=== PATIENT | female | born 1975 | race Caucasian/White ===

== ENCOUNTER 2017-07-13 15:51 | Emergency (ER) | payer OTHER ==
[~2017-07-13 15:51] MED LIST: BACT800T5 PO; CLIN1CAP5 PO; CLON1 PO; IBUP600 PO; METH-703 PO; OXYC1SOL5 PO; TRAM50 PO; subutex PO
[2017-07-13 16:10] VITALS: BP 125/80; PULSE 92; RESP 18; TEMP 98.3; O2SAT 98
[2017-07-13] MEDS ORDERED: CLON1 PO (16:39)
[2017-07-13] MEDS ORDERED: NEUR300C PO (16:39)
--- NOTE | 2017-07-13 17:24 | PD ---
HPI Chief Complaint: Psychiatric Symptoms Time Seen by Provider: 16:16 Travel History International Travel<30 days: No Contact w/Intl Traveler<30days: No Traveled to known affect area: No History of Present Illness HPI 41-year-old female presents to the emergency room under Shelton act. According to the Shelton act report the patient is "not taking prescribed medication. Hallucinating, saying people are following her." On my examination the patient reports having paranoid thoughts for the past 3 months. Says she thinks people want her check in money and that they have been following her around her house. Says she thinks her friends are trying to get her locked up so they can steal her debit card. She admits to IV methamphetamines and says she last injected a couple days ago. Denies auditory or visual hallucinations. Denies suicidal or homicidal ideations. Reports history of suicidal attempt in 2008, otherwise she states she has not been suicidal or had thoughts of suicide since then. Symptoms are moderate to severe in severity. Unknown duration. Unknown onset. No known aggravating or relieving factors. Denies other illicit drug use. Denies alcohol use. Reports tobacco use. Denies chest pain, shortness of breath, abdominal pain, vomiting, fevers, change in urine or stool. Primary care provider is Dr. Morris. Allergies Geodon. History of stress, nerve pain. Takes Klonopin, gabapentin, and Subutex. No other modifying factors or associated signs and symptoms. PFSH Past Medical History Anxiety: Yes Diminished Hearing: No Neurologic: Yes (HISTORY OF HEADACHES AND FACIAL PAIN S/P FACIAL SURGERY. 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 Reported Meds & Prescriptions Reported Meds & Active Scripts Active Keflex (Cephalexin) 500 Mg Cap 500 Mg PO Q12H 7 Days [subutex] 8 Mg PO BID Reported Buprenorphine (Buprenorphine HCl) 8 Mg Subl 8 Mg SL BID Klonopin (Clonazepam) 1 Mg Tab 1 Mg PO BID Neurontin (Gabapentin) 300 Mg Cap 300 Mg PO BID Review of Systems Except as stated in HPI: all other systems reviewed are Neg Physical Exam Narrative GENERAL: Well-nourished, well-developed female patient, in no acute distress SKIN: Warm and dry. HEAD: Atraumatic. Normocephalic. EYES: Pupils equal and round. ENT: Mucosa pink and moist. NECK: Supple. Trachea midline. CARDIOVASCULAR: Regular rate and rhythm. No murmur appreciated. RESPIRATORY: No accessory muscle use. Clear to auscultation. Breath sounds equal bilaterally. GASTROINTESTINAL: Abdomen soft, non-tender, nondistended. Hepatic and splenic margins not palpable. Bowel sounds are active 4 quadrants. MUSCULOSKELETAL: No obvious deformities. No clubbing. No cyanosis. No edema. BACK: No CVA tenderness. NEUROLOGICAL: Awake and alert. Oriented 3. No obvious cranial nerve deficits. Motor grossly within normal limits. Normal speech. Moves all extremities. 5/5 strength to all extremities. PSYCHIATRIC: No delusional thought processes. No hallucinations. Data Data Last Documented VS Vital Signs Date Time Temp Pulse Resp B/P (MAP) Pulse Ox O2 Delivery O2 Flow Rate FiO2 07/14/17 10:11 68 16 118/62 (80) 99 07/14/17 03:16 Room Air 07/13/17 16:10 98.3 Orders Orders Complete Blood Count With Diff (07/13/17 17:18) Comprehensive Metabolic Panel (07/13/17 17:18) Thyroid Stimulating Hormone (07/13/17 17:18) Psych Screen (07/13/17 17:18) Drug Screen, Random Urine (07/13/17 17:18) Alcohol (Ethanol) (07/13/17 17:18) Salicylates (Aspirin) (07/13/17 17:18) Tylenol (Acetaminophen) (07/13/17 17:18) Urinalysis - C+S If Indicated (07/13/17 17:18) Ed Urine Pregnancytest Poc (07/13/17 17:18) Urine Culture (07/13/17 17:20) Cephalexin (Keflex) (07/13/17 21:00) Diet Regular Basic (07/14/17 Breakfast) Ed Discharge Order (07/14/17 10:32) Labs Laboratory Tests Test 07/13/17 17:15 07/13/17 17:20 07/13/17 19:45 White Blood Count 6.2 TH/MM3 Red Blood Count 4.95 MIL/MM3 Hemoglobin 15.0 GM/DL Hematocrit 42.5 % Mean Corpuscular Volume 85.9 FL Mean Corpuscular Hemoglobin 30.2 PG Mean Corpuscular Hemoglobin Concent 35.2 % Red Cell Distribution Width 13.5 % Platelet Count 278 TH/MM3 Mean Platelet Volume 8.1 FL Neutrophils (%) (Auto) 61.0 % Lymphocytes (%) (Auto) 24.9 % Monocytes (%) (Auto) 11.6 % Eosinophils (%) (Auto) 1.9 % Basophils (%) (Auto) 0.6 % Neutrophils # (Auto) 3.8 TH/MM3 Lymphocytes # (Auto) 1.5 TH/MM3 Monocytes # (Auto) 0.7 TH/MM3 Eosinophils # (Auto) 0.1 TH/MM3 Basophils # (Auto) 0.0 TH/MM3 CBC Comment DIFF FINAL Differential Comment Blood Urea Nitrogen 16 MG/DL Creatinine 0.83 MG/DL Random Glucose 75 MG/DL Total Protein 7.5 GM/DL Albumin 3.4 GM/DL Calcium Level 8.5 MG/DL Alkaline Phosphatase 82 U/L Aspartate Amino Transf (AST/SGOT) 48 U/L Alanine Aminotransferase (ALT/SGPT) 68 U/L Total Bilirubin 0.2 MG/DL Sodium Level 137 MEQ/L Potassium Level 4.0 MEQ/L Chloride Level 104 MEQ/L Carbon Dioxide Level 25.7 MEQ/L Anion Gap 7 MEQ/L Estimat Glomerular Filtration Rate 76 ML/MIN Thyroid Stimulating Hormone 3rd Gen 0.731 uIU/ML Salicylates Level LESS THAN 1.7 MG/DL Acetaminophen Level LESS THAN 2.0 MCG/ML Ethyl Alcohol Level LESS THAN 3 MG/DL Urine Color YELLOW Urine Turbidity HAZY Urine pH 6.0 Urine Specific [place] 1.026 Urine Protein TRACE mg/dL Urine Glucose (UA) NEG mg/dL Urine Ketones NEG mg/dL Urine Occult Blood NEG Urine Nitrite POS Urine Bilirubin NEG Urine Urobilinogen LESS THAN 2.0 MG/DL Urine Leukocyte Esterase NEG Urine RBC 1 /hpf Urine WBC 4 /hpf Urine Squamous Epithelial Cells 19 /hpf Urine Calcium Oxalate Crystals FEW /hpf Urine Bacteria MANY /hpf Urine Mucus MANY /lpf Microscopic Urinalysis Comment CULTURE INDICATED Urine Opiates Screen NEG Urine Barbiturates Screen NEG Urine Amphetamines Screen POS Urine Benzodiazepines Screen NEG Urine Cocaine Screen NEG Urine Cannabinoids Screen POS MDM Medical Decision Making Medical Screen Exam Complete: Yes Emergency Medical Condition: Yes Medical Record Reviewed: Yes Differential Diagnosis Methamphetamine abuse, polysubstance abuse, paranoia, medical clearance for psychiatric admission Narrative Course Patient presents under a Shelton act. Physical examination and vital signs are essentially unremarkable. Patient has no medical complaints to report. Psych screen has been ordered. If the laboratory results are unremarkable, the patient will be medically cleared for psychiatric evaluation and disposition. Diagnosis Primary Impression: Medical clearance for psychiatric admission Additional Impression: UTI (urinary tract infection) Qualified Codes: N39.0 - Urinary tract infection, site not specified Additional Instructions: Take antibiotics as prescribed and complete full course Drink plenty of fluids Maintain good personal hygiene Follow-up with primary care provider Return to the emergency department immediately with worsening of symptoms Med/Other Pt SpecificInfo: Prescription(s) given Scripts Cephalexin (Keflex) 500 Mg Cap 500 MG PO Q12H for Infection for 7 Days, #14 CAP 0 Refills Prov: Kelley Thakkar 07/14/17 Condition: Stable Kelley Thakkar Jul 13, 2017 17:24
[2017-07-13 18:21] VITALS: BP 112/58; PULSE 82; RESP 18; O2SAT 98
[2017-07-13 18:25] LABS: AUTOMATED NEUTROPHIL # 3.8 TH/MM3 (1.8-7.7); BASOPHIL % 0.6 % (0.0-2.0); EOSINOPHIL # 0.1 TH/MM3 (0-0.4); EOSINOPHIL % 1.9 % (0.0-4.0); HEMATOCRIT 42.5 % (35.0-46.0); LYMPH % 24.9 % (9.0-44.0); LYMPHOCYTE # 1.5 TH/MM3 (1.0-4.8); MEAN CELL VOLUME 85.9 FL (80.0-100.0); MEAN CORPUSCULAR HEMOGLOBIN 30.2 PG (27.0-34.0); MEAN CORPUSCULAR HGB CONC 35.2 % (32.0-36.0); MEAN PLATELET VOLUME 8.1 FL (7.0-11.0); MONO % 11.6 % (0.0-8.0); MONOCYTE # 0.7 TH/MM3 (0-0.9); PLATELET COUNT 278 TH/MM3 (150-450); RED BLOOD COUNT 4.95 MIL/MM3 (4.00-5.30); RED CELL DISTRIBUTION WIDTH 13.5 % (11.6-17.2); WHITE BLOOD COUNT 6.2 TH/MM3 (4.0-11.0)
[2017-07-13 18:42] LABS: ALBUMIN 3.4 GM/DL (3.4-5.0); AST (GOT) 48 U/L (15-37); BICARBONATE 25.7 MEQ/L (21.0-32.0); BLOOD UREA NITROGEN 16 MG/DL (7-18); CALCIUM 8.5 MG/DL (8.5-10.1); CHLORIDE 104 MEQ/L (98-107); CREATININE 0.83 MG/DL (0.50-1.00); GLOMERULAR FILTRATION RATE 76 ML/MIN (>89); GLUCOSE,RANDOM 75 MG/DL (74-106); SODIUM (NA) 137 MEQ/L (136-145)
[2017-07-13 18:54] LABS: ALKALINE PHOSPHATASE 82 U/L (45-117); ALT (GPT) 68 U/L (10-53); TOTAL BILIRUBIN ADULT 0.2 MG/DL (0.2-1.0); TOTAL PROTEIN 7.5 GM/DL (6.4-8.2)
[2017-07-13 18:55] LABS: BACTERIA, URINE MANY /hpf; BILIRUBIN, URINE NEG (NEG); BLOOD, URINE NEG (NEG); CALCIUM OXALATE CRYSTALS,URINE FEW /hpf; GLUCOSE,URINE NEG (NEG); KETONE, URINE NEG (NEG); MUCUS URINE MANY /lpf (OCC); NITRITE,URINE POS (NEG); SQUAMOUS EPITHELIAL CELL URINE 19 /hpf (0-5); URINE COLOR YELLOW (YELLW/STRAW); URINE LEUKOCYTE ESTERASE NEG (NEG)
[2017-07-13 18:59] LABS: ACETAMINOPHEN LESS THAN 2.0 MCG/ML (10.0-30.0)
[2017-07-13] MEDS ORDERED: CEPH-460 PO (19:06)
[2017-07-13 20:05] VITALS: BP 109/59; PULSE 86; RESP 20; O2SAT 100
[2017-07-13] MEDS: CEPHALEXIN MONOHYDRATE 500 MG CAP PO SCH (20:54)
[2017-07-14 03:16] VITALS: BP 116/72; PULSE 78; RESP 20; O2SAT 100
[2017-07-14] MEDS ORDERED: BUPR8SUB SL (06:38)
[2017-07-14] MEDS: CEPHALEXIN MONOHYDRATE 500 MG CAP PO SCH (09:39)
[2017-07-14 10:11] VITALS: BP 118/62
--- NOTE | 2017-07-14 10:15 | PD ---
History of Present Illness Chief Complaint: Psychiatric Symptoms Time Seen by Provider: 10:00 Travel History International Travel<30 Days: No Contact w/Intl Traveler<30days: No Known affected area: No Legal Status Legal Status: Shelton Act Shelton Act Signed By: Catarina De History of Present Illness: History of Present Illness HPI 41-year-old, single, homeless female with history of substance use disorder and anxiety who presents to the emergency room under Shelton act initiated by law enforcement. The Shelton act report states the patient is "not taking prescribed medication. Hallucinating, saying people are following her." ED provider note is reviewed and summarize as follows;" reported paranoid thoughts for the past 3 months, believes that people want to take her money and that they have been following her around her house, believes that her friends are trying to "crowds and he can still her debit card". Patient is not suicidal and is not homicidal. Electronic medical record is reviewed. No previous contact with [facility] psychiatry Department. Current toxicology is positive for amphetamines. Patient admits to recent amphetamine use. The patient is seen in main ED. She is asleep but awakens easily. Dressed in [facility] with disheveled appearance. She tells me that she is aware that someone called the police and had her placed under Shelton act. She denies that she is currently hearing any voices. She denies feeling paranoid at this time and admits that when she uses amphetamines " it usually makes me feel paranoid". She denies any suicidal or homicidal ideation, intent or plan. Denies any significant depression or anxiety. Receives medication from Dr. Steven Morris including Suboxone, Klonopin. Patient reports she is sleeping well , eating well. Remainder of psychiatric review of systems is negative. In terms of substance use she denies that she uses amphetamines on a daily basis. . PFSH Past Medical History Anxiety: Yes Diminished Hearing: No Neurologic: Yes (HISTORY OF HEADACHES AND FACIAL PAIN S/P FACIAL SURGERY. 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 Sees Dr. Steven Morris for medication management. Denies any previous history of suicidal attempts. History of Inpatient Treatment: Yes Guns or firearms in home: No Social History Single, homeless female. Has contact with her family including her mother and her uncle. Currently unemployed. Hx Alcohol Use: No Hx Tobacco Use: Yes (3-4 CIG DAILY) Hx Substance Use: Yes (METHAMPHETAMINES. HX OF POLYSUBSTANCE. IV DRUG USE) Substance Use Type: Marijuana, Amphetamines-Stimulants Other Substances Used: WAS ON SUBOXONE AND KLONOPIN Hx of Substance Use Treatment: Yes Family Psychiatric History Negative Allergies-Medications (Allergen,Severity, Reaction): Coded Allergies: Phenothiazines (Unverified Allergy, Severe, Seizures, 12/01/16) poor historian ziprasidone (Verified Allergy, Severe, difficulty swallowing, 07/13/17) *MDRO Multi-Drug Resistant Organism (Unverified Adverse Reaction, Unknown , 09/19/14) MRSA abdominal wound 08/2014. Reported Meds & Prescriptions Reported Meds & Active Scripts Active Keflex (Cephalexin) 500 Mg Cap 500 Mg PO Q12H 7 Days [subutex] 8 Mg PO BID Reported Buprenorphine (Buprenorphine HCl) 8 Mg Subl 8 Mg SL BID Klonopin (Clonazepam) 1 Mg Tab 1 Mg PO BID Neurontin (Gabapentin) 300 Mg Cap 300 Mg PO BID Review of Systems Psychiatric: COMPLAINS OF: Anxiety Except as stated in HPI: all other systems reviewed are Neg Mental Status Examination Appearance: Disheveled (in hospital gown) Consciousness: Alert Orientation: x4 Motor Activity: Other (remain in bed) Speech: Unremarkable Language: Adequate Fund of Knowledge: Adequate Attention and Concentration: Adequate Memory: Unremarkable Mood: Appropriate Affect: Appropriate Thought Process & Associations: Intact, Logical, Goal directed Thought Content: Appropriate Hallucination Type: None Delusion Type: None Suicidal Ideation: No Suicidal Plan: No Suicidal Intention: No Homicidal Ideation: No Homicidal Plan: No Homicidal Intention: No Insight: Fair Judgment: Adequate MDM Medical Decision Making Medical Record Reviewed: Yes Assessment/Plan 41-year-old, single, homeless female with history of substance use disorder and anxiety who presents to the emergency room under Shelton act initiated by law enforcement. The Shelton act report states the patient is "not taking prescribed medication. Hallucinating, saying people are following her." ED provider note is reviewed and summarize as follows;" reported paranoid thoughts for the past 3 months, believes that people want to take her money and that they have been following her around her house, believes that her friends are trying to "crowds and he can still her debit card". Patient is not suicidal and is not homicidal. Patient admits to recent use of amphetamines as well as indicating that after she uses amphetamines she usually feels paranoid. She is denying any current paranoid thoughts, denies any hallucinations, denies any suicidal or homicidal ideation. In terms of her belongings she does state that she lost her debit card and her mother is trying to help her to get that back from the back. This time the patient does not present any evidence of unstable mental illness as defined under the Shelton act. The patient is currently in treatment and has medication. She is not suicidal or homicidal. Not manic or hypomanic. The Shelton act will be lifted. She is advised regarding abstinence from substances including amphetamines. Psychiatrically clear for discharge from the ED Orders Orders Complete Blood Count With Diff (07/13/17 17:18) Comprehensive Metabolic Panel (07/13/17 17:18) Thyroid Stimulating Hormone (07/13/17 17:18) Psych Screen (07/13/17 17:18) Drug Screen, Random Urine (07/13/17 17:18) Alcohol (Ethanol) (07/13/17 17:18) Salicylates (Aspirin) (07/13/17 17:18) Tylenol (Acetaminophen) (07/13/17 17:18) Urinalysis - C+S If Indicated (07/13/17 17:18) Ed Urine Pregnancytest Poc (07/13/17 17:18) Urine Culture (07/13/17 17:20) Cephalexin (Keflex) (07/13/17 21:00) Diet Regular Basic (07/14/17 Breakfast) Results Vital Signs Date Time Temp Pulse Resp B/P (MAP) Pulse Ox O2 Delivery O2 Flow Rate FiO2 07/14/17 10:11 68 16 118/62 (80) 99 07/14/17 03:16 78 20 116/72 (87) 100 Room Air 07/13/17 20:05 86 20 109/59 (76) 100 Room Air 07/13/17 18:21 82 18 112/58 (76) 98 Room Air 07/13/17 16:10 98.3 92 18 125/80 (95) 98 Laboratory Tests Test 07/13/17 17:15 07/13/17 17:20 07/13/17 19:45 White Blood Count 6.2 Red Blood Count 4.95 Hemoglobin 15.0 Hematocrit 42.5 Mean Corpuscular Volume 85.9 Mean Corpuscular Hemoglobin 30.2 Mean Corpuscular Hemoglobin Concent 35.2 Red Cell Distribution Width 13.5 Platelet Count 278 Mean Platelet Volume 8.1 Neutrophils (%) (Auto) 61.0 Lymphocytes (%) (Auto) 24.9 Monocytes (%) (Auto) 11.6 Eosinophils (%) (Auto) 1.9 Basophils (%) (Auto) 0.6 Neutrophils # (Auto) 3.8 Lymphocytes # (Auto) 1.5 Monocytes # (Auto) 0.7 Eosinophils # (Auto) 0.1 Basophils # (Auto) 0.0 CBC Comment DIFF FINAL Differential Comment Blood Urea Nitrogen 16 Creatinine 0.83 Random Glucose 75 Total Protein 7.5 Albumin 3.4 Calcium Level 8.5 Alkaline Phosphatase 82 Aspartate Amino Transf (AST/SGOT) 48 Alanine Aminotransferase (ALT/SGPT) 68 Total Bilirubin 0.2 Sodium Level 137 Potassium Level 4.0 Chloride Level 104 Carbon Dioxide Level 25.7 Anion Gap 7 Estimat Glomerular Filtration Rate 76 Thyroid Stimulating Hormone 3rd Gen 0.731 Salicylates Level LESS THAN 1.7 Acetaminophen Level LESS THAN 2.0 Ethyl Alcohol Level LESS THAN 3 Urine Color YELLOW Urine Turbidity HAZY Urine pH 6.0 Urine Specific [place] 1.026 Urine Protein TRACE Urine Glucose (UA) NEG Urine Ketones NEG Urine Occult Blood NEG Urine Nitrite POS Urine Bilirubin NEG Urine Urobilinogen LESS THAN 2.0 Urine Leukocyte Esterase NEG Urine RBC 1 Urine WBC 4 Urine Squamous Epithelial Cells 19 Urine Calcium Oxalate Crystals FEW Urine Bacteria MANY Urine Mucus MANY Microscopic Urinalysis Comment CULTURE INDICATED Urine Opiates Screen NEG Urine Barbiturates Screen NEG Urine Amphetamines Screen POS Urine Benzodiazepines Screen NEG Urine Cocaine Screen NEG Urine Cannabinoids Screen POS Date/Time Source Procedure Growth Status 07/13/17 17:20 Urine Random Urine Urine Culture Pending Received Diagnosis Primary Impression: Medical clearance for psychiatric admission Additional Impressions: UTI (urinary tract infection) Amphetamine abuse Amphetamine-induced psychotic disorder, with hallucinations Psychiatrically Cleared: Yes Additional Instructions: Take antibiotics as prescribed and complete full course Drink plenty of fluids Maintain good personal hygiene Follow-up with primary care provider Return to the emergency department immediately with worsening of symptoms Med/ Other Pt Specific Info: No Change to Meds Prescriptions Cephalexin (Keflex) 500 Mg Cap 500 MG PO Q12H for Infection for 7 Days, #14 CAP 0 Refills Prov: Kelley Thakkar Pelon CASTELANP 07/14/17 Disposition: 01 DISCHARGE HOME Condition: Stable Problem Qualifiers Additional Impressions: UTI (urinary tract infection) Qualified Codes: N39.0 - Urinary tract infection, site not specified Madiha Tobias [facility] Jul 14, 2017 10:15
--- NOTE | 2017-07-14 10:32 | PD ---
Physical Exam Time Seen by Provider: 10:29 JOSE DAVID Polanco has evaluated patient, lifted the Shelton act and cleared the patient for discharge. Data Data Last Documented VS Vital Signs Date Time Temp Pulse Resp B/P (MAP) Pulse Ox O2 Delivery O2 Flow Rate FiO2 07/14/17 10:11 68 16 118/62 (80) 99 07/14/17 03:16 Room Air 07/13/17 16:10 98.3 Orders Orders Complete Blood Count With Diff (07/13/17 17:18) Comprehensive Metabolic Panel (07/13/17 17:18) Thyroid Stimulating Hormone (07/13/17 17:18) Psych Screen (07/13/17 17:18) Drug Screen, Random Urine (07/13/17 17:18) Alcohol (Ethanol) (07/13/17 17:18) Salicylates (Aspirin) (07/13/17 17:18) Tylenol (Acetaminophen) (07/13/17 17:18) Urinalysis - C+S If Indicated (07/13/17 17:18) Ed Urine Pregnancytest Poc (07/13/17 17:18) Urine Culture (07/13/17 17:20) Cephalexin (Keflex) (07/13/17 21:00) Diet Regular Basic (07/14/17 Breakfast) Labs Laboratory Tests Test 07/13/17 17:15 07/13/17 17:20 07/13/17 19:45 White Blood Count 6.2 TH/MM3 Red Blood Count 4.95 MIL/MM3 Hemoglobin 15.0 GM/DL Hematocrit 42.5 % Mean Corpuscular Volume 85.9 FL Mean Corpuscular Hemoglobin 30.2 PG Mean Corpuscular Hemoglobin Concent 35.2 % Red Cell Distribution Width 13.5 % Platelet Count 278 TH/MM3 Mean Platelet Volume 8.1 FL Neutrophils (%) (Auto) 61.0 % Lymphocytes (%) (Auto) 24.9 % Monocytes (%) (Auto) 11.6 % Eosinophils (%) (Auto) 1.9 % Basophils (%) (Auto) 0.6 % Neutrophils # (Auto) 3.8 TH/MM3 Lymphocytes # (Auto) 1.5 TH/MM3 Monocytes # (Auto) 0.7 TH/MM3 Eosinophils # (Auto) 0.1 TH/MM3 Basophils # (Auto) 0.0 TH/MM3 CBC Comment DIFF FINAL Differential Comment Blood Urea Nitrogen 16 MG/DL Creatinine 0.83 MG/DL Random Glucose 75 MG/DL Total Protein 7.5 GM/DL Albumin 3.4 GM/DL Calcium Level 8.5 MG/DL Alkaline Phosphatase 82 U/L Aspartate Amino Transf (AST/SGOT) 48 U/L Alanine Aminotransferase (ALT/SGPT) 68 U/L Total Bilirubin 0.2 MG/DL Sodium Level 137 MEQ/L Potassium Level 4.0 MEQ/L Chloride Level 104 MEQ/L Carbon Dioxide Level 25.7 MEQ/L Anion Gap 7 MEQ/L Estimat Glomerular Filtration Rate 76 ML/MIN Thyroid Stimulating Hormone 3rd Gen 0.731 uIU/ML Salicylates Level LESS THAN 1.7 MG/DL Acetaminophen Level LESS THAN 2.0 MCG/ML Ethyl Alcohol Level LESS THAN 3 MG/DL Urine Color YELLOW Urine Turbidity HAZY Urine pH 6.0 Urine Specific [place] 1.026 Urine Protein TRACE mg/dL Urine Glucose (UA) NEG mg/dL Urine Ketones NEG mg/dL Urine Occult Blood NEG Urine Nitrite POS Urine Bilirubin NEG Urine Urobilinogen LESS THAN 2.0 MG/DL Urine Leukocyte Esterase NEG Urine RBC 1 /hpf Urine WBC 4 /hpf Urine Squamous Epithelial Cells 19 /hpf Urine Calcium Oxalate Crystals FEW /hpf Urine Bacteria MANY /hpf Urine Mucus MANY /lpf Microscopic Urinalysis Comment CULTURE INDICATED Urine Opiates Screen NEG Urine Barbiturates Screen NEG Urine Amphetamines Screen POS Urine Benzodiazepines Screen NEG Urine Cocaine Screen NEG Urine Cannabinoids Screen POS MDM Supervised Visit with MARIBEL: No Narrative JOSE DAVID Aviles has evaluated patient, lifted the Shelton act and cleared the patient for discharge. Patient contracts safety. Denies suicidal or homicidal ideations. Patient will be provided community resource packet to [facility] for follow-up. Has friends and family for support. Patient was medically cleared by alternate provider prior to psych screening. Patient has been evaluated by psychiatry and and is now cleared for discharge. Diagnosis Primary Impression: Amphetamine-induced psychotic disorder, with hallucinations Additional Impressions: UTI (urinary tract infection) Qualified Codes: N39.0 - Urinary tract infection, site not specified Amphetamine abuse Referrals: [facility] (Out patient) [facility] Primary Care Physician Psychiatrist Rayshawn [facility]ERTRAND [facility] Patient Instructions: General Instructions, Polysubstance Abuse (ED), Urinary Tract Infection in Women (ED) Additional Instruction: Take antibiotics as prescribed and complete full course Drink plenty of fluids Maintain good personal hygiene Follow-up with primary care provider Return to the emergency department immediately with worsening of symptoms Med/Other Pt SpecificInfo: No Change to Meds, No Meds Exist/No RX given Scripts Cephalexin (Keflex) 500 Mg Cap 500 MG PO Q12H for Infection for 7 Days, #14 CAP 0 Refills Prov: Kelley Thakkar 07/13/17 Disposition: 01 DISCHARGE HOME Condition: Stable Kelley Thakkar Jul 14, 2017 10:32
[2017-07-14] MEDS ORDERED: CEPH-460 PO (10:50)
== END 2017-07-14 10:56 | disposition home or self-care (01) ==
LOC: NEDAMB 15:51 → NEPD 07-14 10:56
DX: N39.0 Urinary tract infection, site not specified (principal); B96.20 Unspecified Escherichia coli [E. coli] as the cause of diseases classified elsewhere; F15.951 Other stimulant use, unspecified with stimulant-induced psychotic disorder with hallucinations; F12.10 Cannabis abuse, uncomplicated; F41.9 Anxiety disorder, unspecified; F43.10 Post-traumatic stress disorder, unspecified; F17.210 Nicotine dependence, cigarettes, uncomplicated; Z59.0 Homelessness; Z79.899 Other long term (current) drug therapy
CPT/HCPCS: 80053; 80307; 81001; 84443; 84703; 85025; 87077; 87086; 87186; 99284

== ENCOUNTER 2017-07-21 08:10 | Emergency (ER) | payer OTHER ==
[~2017-07-21] VITALS: Ht 157.5 cm; Wt 55.0 kg
[~2017-07-21 08:10] MED LIST changes: -BACT800T5 PO; +BUPR8SUB SL; +CEPH-460 PO; -CLIN1CAP5 PO; -IBUP600 PO; -METH-703 PO; +NEUR300C PO; -OXYC1SOL5 PO; -TRAM50 PO
[2017-07-21 08:13] VITALS: BP 133/91; PULSE 104; RESP 16; TEMP 97.7; O2SAT 98
[2017-07-21] MEDS ORDERED: ONDANSETRON HCL 4 MG/2 ML VIAL IV PUSH ONE (08:30)
[2017-07-21] MEDS ORDERED: SODIUM CHLOR 0.9% 1000 ML INJ 1,000 ML IV ONE ×2 (08:30→10:00)
[2017-07-21 09:12] LABS: ALT (GPT) 60 U/L (10-53)
[2017-07-21 09:15] LABS: ALKALINE PHOSPHATASE 96 U/L (45-117); TOTAL BILIRUBIN ADULT 0.5 MG/DL (0.2-1.0); TOTAL PROTEIN 8.3 GM/DL (6.4-8.2)
[2017-07-21 09:20] LABS: ALBUMIN 3.5 GM/DL (3.4-5.0); AST (GOT) 37 U/L (15-37); BLOOD UREA NITROGEN 25 MG/DL (7-18); CALCIUM 8.5 MG/DL (8.5-10.1); CHLORIDE 106 MEQ/L (98-107); CREATININE 1.01 MG/DL (0.50-1.00); GLOMERULAR FILTRATION RATE 61 ML/MIN (>89); GLUCOSE,RANDOM 130 MG/DL (74-106); SODIUM (NA) 137 MEQ/L (136-145)
--- NOTE | 2017-07-21 09:20 | PD ---
HPI Chief Complaint: GI Complaint Time Seen by Provider: 08:24 Travel History International Travel<30 days: No Contact w/Intl Traveler<30days: No Traveled to known affect area: No History of Present Illness HPI Patient is here for assistance, states that she has had nausea vomiting and diarrhea which she attributes to her being off of Suboxone for 5-7 days. No apparent alleviating or aggravating factors. No associated factors such as fever, rash, abdominal pain, back pain, flank pain, chest pain, neck pain, no cough/runny nose/sore throat either. Allergy to ziprasidone(caused her extremities to keep twitching) Past medical history significant for seizure, traumatic brain injury, , depression, anxiety, PFSH Past Medical History Anxiety: Yes Diminished Hearing: No Neurologic: Yes (HISTORY OF HEADACHES AND FACIAL PAIN S/P FACIAL SURGERY. ) Psychiatric: Yes (prior srinivasan act for adjustment d/o) ?: Not LMP: 07/21/17 : 4 Para: 2 Miscarriage: 1 : 1 Past Surgical History Section: Yes Neurologic Surgery: Yes (TRAUMATIC BRAIN INJURY-FELL ON PAINTBRUSH-HANDLE ENTERED THRU MOUTH OUT EAR) Social History Alcohol Use: No Tobacco Use: Yes (3-4 CIG DAILY) Substance Use: No Allergies-Medications (Allergen,Severity, Reaction): Coded Allergies: Phenothiazines (Unverified Allergy, Severe, Seizures, 07/21/17) poor historian ziprasidone (Verified Allergy, Severe, difficulty swallowing, 07/21/17) *MDRO Multi-Drug Resistant Organism (Unverified Adverse Reaction, Unknown , 07/21/17) MRSA abdominal wound 08/2014. Reported Meds & Prescriptions Reported Meds & Active Scripts Active Reported Neurontin (Gabapentin) 300 Mg Cap 300 Mg PO BID Review of Systems General / Constitutional: No: Fever Eyes: No: Visual changes HENT: No: Headaches Cardiovascular: No: Chest Pain or Discomfort Respiratory: No: Shortness of Breath Gastrointestinal: Positive: Nausea, Vomiting, Diarrhea Genitourinary: No: Dysuria Musculoskeletal: No: Pain Skin: No Rash Neurologic: No: Weakness Psychiatric: No: Depression Endocrine: No: Polydipsia Hematologic/Lymphatic: No: Easy Bruising Physical Exam Narrative GENERAL: SKIN: Warm and dry. HEAD: Atraumatic. Normocephalic. EYES: Pupils equal and round. No scleral icterus. No injection or drainage. ENT: No nasal bleeding or discharge. Mucous membranes pink and moist. NECK: Trachea midline. No JVD. CARDIOVASCULAR: Regular rate and rhythm. RESPIRATORY: No accessory muscle use. Clear to auscultation. Breath sounds equal bilaterally. GASTROINTESTINAL: Abdomen soft, non-tender, nondistended. MUSCULOSKELETAL: Extremities without clubbing, cyanosis, or edema. No obvious deformities. NEUROLOGICAL: Awake and alert. No obvious cranial nerve deficits. Motor grossly within normal limits. Five out of 5 muscle strength in the arms and legs. Normal speech. PSYCHIATRIC: Appropriate mood and affect; insight and judgment normal. Data Data Last Documented VS Vital Signs Date Time Temp Pulse Resp B/P (MAP) Pulse Ox O2 Delivery O2 Flow Rate FiO2 07/21/17 08:13 97.7 104 16 133/91 (105) 98 Orders Orders Complete Blood Count With Diff (07/21/17 08:24) Comprehensive Metabolic Panel (07/21/17 08:24) Lipase (07/21/17 08:24) Urinalysis - C+S If Indicated (07/21/17 08:24) Iv Access Insert/Monitor (07/21/17 08:24) Ecg Monitoring (07/21/17 08:24) Oximetry (07/21/17 08:24) Ed Urine Pregnancytest Poc (07/21/17 08:24) Drug Screen, Random Urine (07/21/17 08:24) Alcohol (Ethanol) (07/21/17 08:24) Ondansetron Inj (Zofran Inj) (07/21/17 08:30) Sodium Chlor 0.9% 1000 Ml Inj (Ns 1000 M (07/21/17 08:30) Clonidine (Catapres) (07/21/17 10:00) Sodium Chlor 0.9% 1000 Ml Inj (Ns 1000 M (07/21/17 10:00) Ketorolac Inj (Toradol Inj) (07/21/17 10:00) Ed Discharge Order (07/21/17 10:51) Labs Laboratory Tests Test 07/21/17 08:39 07/21/17 09:37 Blood Urea Nitrogen 25 MG/DL Creatinine 1.01 MG/DL Random Glucose 130 MG/DL Total Protein 8.3 GM/DL Albumin 3.5 GM/DL Calcium Level 8.5 MG/DL Alkaline Phosphatase 96 U/L Aspartate Amino Transf (AST/SGOT) 37 U/L Alanine Aminotransferase (ALT/SGPT) 60 U/L Total Bilirubin 0.5 MG/DL Sodium Level 137 MEQ/L Potassium Level 4.7 MEQ/L Chloride Level 106 MEQ/L Carbon Dioxide Level 22.0 MEQ/L Anion Gap 9 MEQ/L Estimat Glomerular Filtration Rate 61 ML/MIN Lipase 197 U/L Ethyl Alcohol Level LESS THAN 3 MG/DL Urine Color YELLOW Urine Turbidity CLEAR Urine pH 7.0 Urine Specific [place] 1.037 Urine Protein 30 mg/dL Urine Glucose (UA) NEG mg/dL Urine Ketones NEG mg/dL Urine Occult Blood MOD Urine Nitrite NEG Urine Bilirubin NEG Urine Urobilinogen LESS THAN 2.0 MG/DL Urine Leukocyte Esterase NEG Urine RBC LESS THAN 1 /hpf Urine WBC LESS THAN 1 /hpf Urine Squamous Epithelial Cells 5 /hpf Urine Bacteria RARE /hpf Urine Mucus MOD /lpf Microscopic Urinalysis Comment CULT NOT INDICATED Urine Opiates Screen NEG Urine Barbiturates Screen NEG Urine Amphetamines Screen NEG Urine Benzodiazepines Screen NEG Urine Cocaine Screen NEG Urine Cannabinoids Screen NEG MDM Medical Decision Making Medical Screen Exam Complete: Yes Emergency Medical Condition: Yes Medical Record Reviewed: Yes Differential Diagnosis Viral/bacterial gastroenteritis versus opiate withdrawal versus pancreatitis versus hepatitis Narrative Course Alcohol level negative CBC pending CMP shows normal electrolytes, kidney liver and pancreatic functions are within normal limits, mildly elevated random glucose of 130, some prerenal azotemia BUN of 25, creatinine 1.1, and a GFR of 61 Tox screen is negative for opiates barbiturates and amphetamines benzodiazepines cocaine marijuana or alcohol. UA is negative for any evidence of UTI Diagnosis Primary Impression: Opiate withdrawal Referrals: [facility] (Out patient) Patient Instructions: General Instructions, Opioid Withdrawal (ED) Scripts Ondansetron Odt (Zofran Odt) 4 Mg Tab 4 MG SL Q6HR Y for Nausea/Vomiting, #20 TAB 0 Refills Prov: Fantasma Stoll MD 07/21/17 Disposition: 01 DISCHARGE HOME Condition: Stable Fantasma Stoll MD Jul 21, 2017 09:20
[2017-07-21] MEDS ORDERED: cloNIDine HCL 0.1 MG TAB PO ONE (10:00)
[2017-07-21] MEDS ORDERED: KETOROLAC TROMETHAMINE 30 MG/ML (IVP) VIAL IV PUSH ONE (10:00)
[2017-07-21 10:09] LABS: BACTERIA, URINE RARE /hpf; BILIRUBIN, URINE NEG (NEG); BLOOD, URINE MOD (NEG); GLUCOSE,URINE NEG (NEG); KETONE, URINE NEG (NEG); MUCUS URINE MOD /lpf (OCC); NITRITE,URINE NEG (NEG); SQUAMOUS EPITHELIAL CELL URINE 5 /hpf (0-5); URINE COLOR YELLOW (YELLW/STRAW); URINE LEUKOCYTE ESTERASE NEG (NEG)
[2017-07-21] MEDS ORDERED: ZOFR4TAB3 SL (10:54)
[2017-07-21 13:43] LABS: BASOPHIL # 0.1 TH/MM3 (0-0.2); BASOPHIL % 1.1 % (0.0-2.0); EOSINOPHIL % 0.2 % (0.0-4.0); HEMATOCRIT 45.1 % (35.0-46.0); HEMOGLOBIN 15.6 GM/DL (11.6-15.3); LYMPH % 7.8 % (9.0-44.0); MEAN CELL VOLUME 87.5 FL (80.0-100.0); MEAN CORPUSCULAR HEMOGLOBIN 30.3 PG (27.0-34.0); MEAN CORPUSCULAR HGB CONC 34.6 % (32.0-36.0); MEAN PLATELET VOLUME 9.3 FL (7.0-11.0); MONOCYTE # 0.8 TH/MM3 (0-0.9); NEUT % 84.9 % (16.0-70.0); PLATELET COUNT 316 TH/MM3 (150-450); RED BLOOD COUNT 5.15 MIL/MM3 (4.00-5.30); WHITE BLOOD COUNT 12.9 TH/MM3 (4.0-11.0)
== END 2017-07-21 11:09 | disposition home or self-care (01) ==
LOC: NEPE 08:10
DX: F11.23 Opioid dependence with withdrawal (principal); F17.210 Nicotine dependence, cigarettes, uncomplicated
CPT/HCPCS: 80053; 80307; 81001; 83690; 84703; 85025; 96361; 96374; 96375; 99284; J1885; J2405; J7030